=== PATIENT | female | born 1975 | race Two or more races ===

== ENCOUNTER → 2021-12-08 | Emergency (ER) | payer OTHER ==
[~2021-12-08] VITALS: Ht 165.1 cm; Wt 81.6 kg
[~2021-12-08] MED LIST: DUI500 PO; METFORMIN; TOPIRAMATE; [UNRECOGNIZED DRUG - OTHER]
== END | disposition home or self-care (01) ==
LOC: ER 19:17
DX: L03.115 Cellulitis of right lower limb (principal); Z88.8 Allergy status to other drugs, medicaments and biological substances